=== PATIENT | female | born 1995 | race Caucasian/White ===

== ENCOUNTER 2020-05-28 12:21 | Outpatient (CLI) | payer OTHER, SELFPAY ==
[2020-05-28 12:43] LABS: Hematocrit 39.1 % (37.0-47.0); Hemoglobin 13.1 g/dL (12.0-15.0); Mean Corpuscular HGB Conc 33.5 g/dl (32-36); Mean Corpuscular Hemoglobin 29.4 pg (26-34); Mean Corpuscular Volume 87.7 fl (80-100); Mean Platelet Volume 9.8 fl (7.4-10.4); Platelet Count Result 210 k/mm3 (150-375); Red Blood Count 4.46 M/mm3 (4.2-5.4); White Blood Count 3.9 K/mm3 (4.5-10.0)
[2020-05-28 12:52] LABS: Alanine Aminotransferase 15 U/L (4-35); Albumin Level 4.2 g/dL (3.5-5.1); Alkaline Phosphatase 51 U/L (38-126); Anion Gap 5 mmol/L (8-16); Aspartate Amino Transferase 25 U/L (14-36); Bilirubin,Total 0.4 mg/dL (0.2-1.3); Blood Urea Nitrogen 13 mg/dL (7-17); Calcium 9.2 mg/dL (8.4-10.2); Carbon Dioxide 28 mmol/L (22-30); Chloride 104 mmol/L (98-107); Cholesterol 145 mg/dL (0-200); Estimated Glomerular Filt Rate > 60; Glucose 79 mg/dL (65-105); HDL Direct 71 mg/dL; Potassium 4.3 mmol/L (3.4-5.0); Sodium 137 mmol/L (137-145); Triglycerides 60 mg/dL (<150)
[2020-05-28 13:08] LABS: LDL Cholesterol Direct 62 mg/dL
[2020-05-28 13:52] LABS: Vitamin D 25 Hydroxy 82.7 ng/mL
[2020-05-28 13:57] LABS: Folic Acid 17.6 ng/mL (2.76->20)
== END 2020-05-28 12:22 | disposition home or self-care (01) ==
PROVIDERS: PCP Physician Assistant; Visit Provider Physician Assistant
DX: E55.9 Vitamin D deficiency, unspecified (principal); Z00.00 Encounter for general adult medical examination without abnormal findings; Z51.81 Encounter for therapeutic drug level monitoring; Z79.899 Other long term (current) drug therapy
CPT/HCPCS: 36415; 80053; 80061; 82306; 82607; 82746; 84443; 85027

== ENCOUNTER 2023-06-26 11:40 | Emergency (ER) | payer OTHER, SELFPAY ==
[2023-06-26 11:58] VITALS: BP 132/78; PULSE 127; RESP 18; TEMP 37.8; O2SAT 100
--- NOTE | 2023-06-26 12:38 | ED.URI ---
HPI - URI/Sore Throat General Chief Complaint: Ear Stated Complaint: bilateral ear discomfort,congestion Time Seen by Provider: 06/26/23 12:38 Source: patient, RN notes reviewed and old records reviewed Mode of arrival: ambulatory Limitations: no limitations History of Present Illness HPI Narrative: 28-year-old female presents to the [facility] with bilateral ear discomfort, congestion that started yesterday. Patient reports that she is 38 weeks . Denies any issues with her . Denies any abdominal pain, chest pain, shortness of breath Reports that she called her color maker provider was referred to the [facility] for testing for flu a and COVID. Onset (ago): day(s) (1) Related Data Home Medications Medication Instructions Recorded Confirmed fexofenadine 180 mg tablet 180 mg PO DAILY 05/14/20 06/26/23 (Anne Allergy) prenat.vits,greta,alk-[id number] 1 tablet PO DAILY 05/23/22 06/26/23 Allergies Allergy/AdvReac Type Severity Reaction Status Date / Time erythromycin base Allergy Unknown unknown Verified 06/26/23 18:31 nickel Allergy Unknown unknown Verified 06/26/23 18:31 shellfish derived Allergy Unknown unknown Verified 06/26/23 18:31 tree nut Allergy Unknown unknown Verified 06/26/23 18:31 Review of Systems Review of Systems: All systems reviewed & are unremarkable except as noted in HPI and below Constitutional: Constitutional: Reports no additional constitutional complaints Eyes: Eyes: Reports no additional eye complaints ENT: Reports as per HPI, Reports otalgia and Reports nasal congestion Cardiovascular: Cardiovascular: Reports no additional cardiovascular complaints, Denies chest pain and Denies dyspnea Respiratory: Respiratory: Reports no additional respiratory complaints, Denies chest congestion, Denies cough and Denies dyspnea Gastrointestinal: Gastrointestinal: Reports no additional gastrointestinal complaints, Denies abdominal pain, Denies nausea and Denies vomiting Musculoskeletal: Musculoskeletal: Reports no additional musculoskeletal complaints Integumentary/Breasts: Skin/Breast: Reports system reviewed and no additional complaints, except as docu Neurologic: Reports system reviewed and no additional complaints, except as documented Psychiatric: Psychiatric: Reports no additional psychiatric complaints Allergic/Immunologic: Allergic/Immunologic: Reports no additional allergic/immunologic complaints PMFSH Surgical History Surgical History History of ankle surgery Family History Family History Father Colon cancer Mother No problems noted. Other Malignant neoplasm of prostate Social History Social History Smoking status: Never smoker Alcohol intake: current Substance use: never Lack of Transportation: No Lack of Food: Never True Current Housing: I Have Housing Concerned About Future Housing: No Difficulty Paying Gas/Electric Bills: No Difficulty Paying for Meds: No Currently Unemployed: No Difficulty w/ Childcare or Family Care: No Spiritual care concerns: No Comments At the time of my signature, I reviewed and agree with the nursing past medical, surgical, social, and family history. There is no relevant family history pertinent to the patient complaint. Exam Const: General: cooperative, healthy appearing, comfortable, no acute distress, well developed, alert and well nourished Nutritional Appearance: well nourished Orientation/consciousness: patient oriented x3 Limitations: no limitations HENMT: Head: normal to inspection Ears: hearing grossly normal bilaterally, external ears normal, TM's normal bilaterally, EAC's normal, mastoids normal and no periauricular adenopathy Face/Nose/Sinus: Normal external nose present, Normal nares present, Normal nasal mucous memb
== END 2023-06-26 12:53 | disposition home or self-care (01) ==
PROVIDERS: Emergency Provider Nurse Practitioner; PCP Physician Assistant
DX: O98.513 Other viral diseases complicating pregnancy, third trimester (principal); B33.8 Other specified viral diseases; Z3A.38 38 weeks gestation of pregnancy; J10.1 Influenza due to other identified influenza virus with other respiratory manifestations; Z20.822 Contact with and (suspected) exposure to COVID-19
CPT/HCPCS: 87426; 87804; 99213; G0463

== ENCOUNTER 2023-06-26 18:11 | Emergency (ER) | payer OTHER, SELFPAY ==
[2023-06-26] VITALS (7 sets, daily range): BP systolic 99–154; BP diastolic 56–78; PULSE 104–146; RESP 15–25; TEMP 37.2–37.6; O2SAT 97–100
--- NOTE | ~2023-06-26 | XR_ITS ---
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 RESULT: Lines, tubes, and devices: None. Lungs and pleura: Clear. Cardiomediastinal silhouette: Stable. Other: No acute osseous or upper abdominal finding. IMPRESSION: No acute cardiopulmonary process. Reviewed, dictated and finalized at location K. ET PROOF PRESS OPERATOR
[2023-06-26] MEDS: SODIUM CHLORIDE 0.9% IV 1,000 ML 999 ML IV CONT ×3 (19:24→21:07)
[2023-06-26] MEDS: ACETAMINOPHEN 500 MG TABLET 1000 MG PO (19:36)
[2023-06-26 19:40] LABS: Hematocrit 36.1 % (37.0-47.0); Hemoglobin 11.9 g/dL (12.0-15.0); Mean Corpuscular Hemoglobin 29.3 pg (26-34); Mean Corpuscular Volume 88.9 fl (80-100); Mean Platelet Volume 9.7 fl (7.4-10.4); Platelet Count Result 218 k/mm3 (150-375); Red Blood Count 4.06 M/mm3 (4.2-5.4); Red Cell Distribution Width 13.3 % (11.5-14.5); White Blood Count 8.4 K/mm3 (4.5-10.0)
[2023-06-26 19:45] LABS: Appearance Urine Clear (Clear); Bacteria Urine 2+ /hpf; Bilirubin Urine Negative (Negative); Blood Urine Negative (Negative); Color Urine Yellow (Yellow); Glucose Urine UA Negative (Negative); Ketones Urine Negative (Negative); Leukocyte Esterase Ur Trace LEU/UL (Negative); Nitrate Urine Negative (Negative); Non Pathogenic Casts 0-2; Protein Urine Negative (Negative); RBC Urine 0-2 /hpf (0-2); Specific Grav Ur 1.019 (1.001-1.035); Squamous Epithelial Cell Urine Few /hpf (Few); pH Urine 7.5 (5.0-9.0)
[2023-06-26 19:50] LABS: Alanine Aminotransferase 53 U/L (6-35); Albumin Level 3.4 g/dL (3.5-5.1); Alkaline Phosphatase 164 U/L (38-126); Anion Gap 5 mmol/L (8-16); Aspartate Amino Transferase 71 U/L (14-36); Bilirubin,Total 0.4 mg/dL (0.2-1.3); Blood Urea Nitrogen 9 mg/dL (7-17); Calcium 8.4 mg/dL (8.4-10.2); Carbon Dioxide 20 mmol/L (22-30); Chloride 104 mmol/L (98-107); Estimated CRCL calculation 180 ml/min; Estimated Glomerular Filt Rate > 60; Glucose 88 mg/dL (65-110); Potassium 3.5 mmol/L (3.4-5.0); Sodium 129 mmol/L (137-145)
[2023-06-26 20:06] LABS: Band Neutrophils Percent 1 % (0-6); Lymphocytes Absolute Manual 0.16 K/mm3 (1.1-4.5); Monocytes Absolute Manual 0.67 K/mm3 (0.1-0.90); Monocytes Percent Manual 8 % (3-9); Neutrophils Absolute Manual 7.56 K/mm3 (1.7-7.2); Neutrophils Percent Manual 89 % (46-73); Platelet Estimate Adequate (Adequate); Schistocytes None Seen (NORMAL); Total Cells Counted 100
[2023-06-26 20:13] LABS: Add Urine Microscopic? YES
[2023-06-26 20:16] LABS: Influenza A QL RT-PCR Positive (Negative); Influenza B QL RT-PCR Negative (Negative); RSV RNA, RT-PCR Negative (Negative); SARS-CoV-2 RNA PCR Negative (Negative)
--- NOTE | 2023-06-26 20:31 | ED.FEVER ---
HPI - Fever General Chief Complaint: Fever Stated Complaint: Flu A+, fever, tachycardia, 38 weeks Time Seen by Provider: 06/26/23 18:40 History of Present Illness HPI Narrative: Patient is a 28-year-old female at approximately 38 weeks gestation presenting with fever and tachycardia. States that she has had nasal congestion and chills since yesterday. She woke up this morning and checked her temperature and she had a fever so she went to urgent care where she tested positive for influenza A. She took Tylenol but continued to be febrile so her OB advised that she come in for evaluation. States that she feels like her heart is going a bit faster than normal but denies palpitations or pain. States that she feels a little bit short of breath and continues to have nasal congestion. No abdominal pain, nausea vomiting, leg swelling. No vaginal bleeding or fluid leakage. Related Data Home Medications Medication Instructions Recorded Confirmed fexofenadine 180 mg tablet 180 mg PO DAILY 05/14/20 06/26/23 (Anne Allergy) prenat.vits,greta,hoq-dqqh-iekmg 1 tablet PO DAILY 05/23/22 06/26/23 Allergies Allergy/AdvReac Type Severity Reaction Status Date / Time erythromycin base Allergy Unknown unknown Verified 06/26/23 18:31 nickel Allergy Unknown unknown Verified 06/26/23 18:31 shellfish derived Allergy Unknown unknown Verified 06/26/23 18:31 tree nut Allergy Unknown unknown Verified 06/26/23 18:31 Review of Systems Review of Systems: All systems reviewed & are unremarkable except as noted in HPI and below PMFSH Surgical History Surgical History History of ankle surgery Family History Family History Father Colon cancer Mother No problems noted. Other Malignant neoplasm of prostate Social History Social History Smoking status: Never smoker Alcohol intake: current Substance use: never Lack of Transportation: No Lack of Food: Never True Current Housing: I Have Housing Concerned About Future Housing: No Difficulty Paying Gas/Electric Bills: No Difficulty Paying for Meds: No Currently Unemployed: No Difficulty w/ Childcare or Family Care: No Spiritual care concerns: No Exam Narrative: GENERAL: nontoxic, no acute distress, pleasant cooperative HEAD: Normocephalic, atraumatic. EYES: PERRLA and EOMI. ENT: Mucous membranes moist. NECK: Supple. CHEST: Clear to auscultation. No respiratory distress. HEART: tachycardic, regular rhythm ABDOMEN: Soft, appropriately gravid abdomen without tenderness EXTREMITIES: Normal range of motion. No edema. SKIN: Warm, dry, no rash. NEURO: No focal deficits. Alert and oriented x3. PSYCH: Normal mood and affect. Course Vital Signs Vital signs: Vital Signs Temperature 99.7 F H 06/26/23 18:19 Pulse Rate 146 H 06/26/23 18:19 Respiratory Rate 18 06/26/23 18:19 Blood Pressure 154/78 H 06/26/23 18:19 Pulse Oximetry 100 06/26/23 18:19 Temperature 98.9 F 06/26/23 21:10 Pulse Rate 104 H 06/26/23 22:09 Respiratory Rate 16 06/26/23 22:09 Blood Pressure 104/58 L 06/26/23 22:09 Pulse Oximetry 100 06/26/23 22:09 MDM - Fever MDM Narrative Medical decision making narrative: 88-year-old female presenting with influenza a. Patient is tachycardic on arrival. Exam otherwise remarkable for the above. blood work with mild hyponatremia, suspect related to hypovolemia. Chest x-ray without acute abnormalities. Patient is positive for influenza A. UA with 6-10 wbc's and 2+ bacteria. She denies symptoms but she is so will treat this with Keflex. Patient given 3 liters of fluids and her heart rate has come down. Feel she is safe for outpatient management. Will send in for Keflex and advised Tylenol for fevers and body aches. Patient rodriguez
[2023-06-26] MEDS: CEPHALEXIN 500 MG CAPSULE PO (21:14)
[2023-06-26] MEDS: OSELTAMIVIR PHOSPHATE 75 MG CAPSULE PO (22:04)
== END 2023-06-26 22:09 | disposition home or self-care (01) ==
PROVIDERS: Emergency Provider Emergency Medicine; PCP Physician Assistant
DX: O99.513 Diseases of the respiratory system complicating pregnancy, third trimester (principal); J10.1 Influenza due to other identified influenza virus with other respiratory manifestations; O23.43 Unspecified infection of urinary tract in pregnancy, third trimester; N39.0 Urinary tract infection, site not specified; Z3A.38 38 weeks gestation of pregnancy; Z20.822 Contact with and (suspected) exposure to COVID-19
CPT/HCPCS: 36415; 71045; 80053; 81001; 85025; 87040; 87086; 87426; 87637; 87804; 96360; 96361; 99283; A9270; J7030

== ENCOUNTER 2023-07-06 05:06 | Inpatient (IN) | payer OTHER, SELFPAY ==
[2023-07-06] VITALS (95 sets, daily range): BP systolic 97–161; BP diastolic 40–117; PULSE 60–283; RESP 16–18; TEMP 36.1–37.4; O2SAT 90–100; BMI 38.5
--- NOTE | 2023-07-06 06:01 | LDADM ---
This patient, Martha Schaeffer, was admitted to Labor/Delivery/Recovery 103 on 07/06/23 at 05:06. Plans for labor, pain management and were discussed with patient. Patient/family oriented to hospital policies and general routines including ID bracelet, bed and alarms, visiting hours, pain management, procedures, bathroom and other care routines, personal items, smoking policy, room service/diet and guest tray routines, security routines, and visiting hours. Patient/Family are encouraged to report perceived risks to care and to ask questions if they do not understand what they are told or what they should do. See OBIX for further documentation.
[2023-07-06 06:13] LABS: Basophils Percent Auto 0.3 % (0.2-1.2); Eosinophils Absolute Auto 0.2 K/mm3 (0-0.3); Eosinophils Percent Auto 2.2 % (0-4.4); Hemoglobin 12.8 g/dL (12.0-15.0); Immature Granulocyte Absolute 0.08 K/mm3 (0.00-0.031); Immature Granulocyte Percent A 0.9 % (0-0.5); Lymphocytes Percent Auto 21.4 % (18.3-44.2); Mean Corpuscular HGB Conc 32.8 g/dl (32-36); Mean Corpuscular Hemoglobin 28.9 pg (26-34); Mean Platelet Volume 10.1 fl (7.4-10.4); Monocytes Absolute Auto 0.9 K/mm3 (0.1-0.6); Monocytes Percent Auto 9.2 % (2.6-8.5); Neutrophils Absolute Auto 6.2 K/mm3 (1.3-6.7); Platelet Count Result 293 k/mm3 (150-375); Red Blood Count 4.43 M/mm3 (4.2-5.4); Red Cell Distribution Width 12.8 % (11.5-14.5); White Blood Count 9.3 K/mm3 (4.5-10.0)
[2023-07-06 06:18] LABS: Alanine Aminotransferase 39 U/L (6-35); Albumin Level 3.3 g/dL (3.5-5.1); Alkaline Phosphatase 169 U/L (38-126); Anion Gap 7 mmol/L (8-16); Aspartate Amino Transferase 34 U/L (14-36); Bilirubin,Total 0.6 mg/dL (0.2-1.3); Blood Urea Nitrogen 14 mg/dL (7-17); Calcium 8.9 mg/dL (8.4-10.2); Carbon Dioxide 17 mmol/L (22-30); Chloride 109 mmol/L (98-107); Estimated CRCL calculation 178 ml/min; Estimated Glomerular Filt Rate > 60; Glucose 84 mg/dL (65-110); Potassium 3.8 mmol/L (3.4-5.0); Sodium 133 mmol/L (137-145)
--- NOTE | 2023-07-06 06:23 | PM.IMHP ---
H&P: HPI History of Present Illness Date/Time: 07/06/23 06:23 Chief Complaint: Gestational hypertension term Narrative: 28-year-old 1 para 0 whose last menstrual period was 09/19/2022 EDC is 07/08 4 presents 30 weeks gestation for induction of labor secondary to elevated blood pressures. Her has been uncomplicated prior to that with negative group B strep normal diabetic screen. She has an early ultrasound confirming dates. She denies headaches or blurred vision and is not proteinuric PMFSH Surgical History Surgical History History of ankle surgery Family History Family History Father Colon cancer Mother No problems noted. Other Malignant neoplasm of prostate Social History Social History Smoking status: Never smoker Alcohol intake: current Substance use: never Do You Feel Safe in your Home?: Yes Lack of Transportation: No Lack of Food: Never True Current Housing: I Have Housing Concerned About Future Housing: No Difficulty Paying Gas/Electric Bills: No Difficulty Paying for Meds: No Currently Unemployed: No Education: Bachelor's Degree Difficulty w/ Childcare or Family Care: No Spiritual care concerns: No Meds Home Medications and Allergies Home Medications Medication Instructions Recorded Confirmed Type fexofenadine 180 mg tablet 180 mg PO DAILY 05/14/20 06/26/23 History (Anne Allergy) prenat.vits,greta,nxe-hqwo-julgw 1 tablet PO DAILY 05/23/22 06/26/23 History epinephrine 0.3 mg/0.3 mL 0.3 mg (0.3 mL) IM ONCE #1 ea 05/24/23 06/26/23 Rx injection, auto-injector (EpiPen 2-William) cephalexin 500 mg capsule 500 mg PO Q8H 7 days #21 caps 06/26/23 Rx oseltamivir 75 mg capsule (Tamiflu) 75 mg PO Q12H 5 days #10 caps 06/26/23 Rx Allergies Allergy/AdvReac Type Severity Reaction Status Date / Time erythromycin base Allergy Unknown unknown Verified 06/26/23 18:31 nickel Allergy Unknown unknown Verified 06/26/23 18:31 shellfish derived Allergy Unknown unknown Verified 06/26/23 18:31 tree nut Allergy Unknown unknown Verified 06/26/23 18:31 Vital Signs Vital Signs - 24 hr 07/06/23 05:59 07/06/23 05:57 07/06/23 06:00 Pulse Rate 87 77 Blood Pressure 131/87 134/81 Oxygen Delivery Room Air Exam Const: General: cooperative, healthy appearing and comfortable Nutritional Appearance: average body habitus Orientation/consciousness: oriented to person, oriented to place and oriented to time HENMT: Head: normal to inspection Resp: Effort & Inspection: normal respiratory effort Cardio: Rate: regular rate Rhythm: regular rhythm Heart sounds: S1 normal heart sound present and S2 normal heart sound present GI: Inspection: normal to inspection ( gravis with uterus) : External Female Exam: normal external appearance Speculum Exam - Vagina: normal appearance of the vagina Speculum Exam - Cervix: normal appearance of the cervix ( cervix 3.5/80/2. AROM clear. FHTs reassuring) H&P: Results Labs Labs: BMP 07/06/23 05:24 Sodium 133 L Potassium 3.8 Chloride 109 H Carbon Dioxide 17 L BUN 14 D Creatinine 0.50 L Glucose 84 Calcium 8.9 Liver Function 07/06/23 Range/Units 05:24 Total Bilirubin 0.6 (0.2-1.3) mg/dL AST 34 (14-36) U/L ALT 39 H (6-35) U/L Alkaline Phosphatase 169 H (38-126) U/L Albumin 3.3 L (3.5-5.1) g/dL Assessment and Plan Assessment and plan (1) Term : Code(s): Z34.90 - Encounter for supervision of normal , unspecified, unspecified trimester Status: Acute (2) Gestational hypertension: Code(s): O13.9 - Gestational [-induced] hypertension without significant proteinuria, unspecified trimester Status: Acute Plan medical induction of labor.
[2023-07-06] MEDS: LACTATED RINGERS 1,000 ML 125 ML IV CONT (06:28)
[2023-07-06] MEDS: OXYTOCIN 30 UNITS/NS 500 ML 30 UNITS/500 ML BAG 6 UNITS IV CONT (06:29)
[2023-07-06 06:32] LABS: Uric Acid 4.6 mg/dL (2.5-7.5)
--- NOTE | 2023-07-06 08:39 | WPDANESEPP ---
Anes - Eval Pre Procedure Procedure: Labor Epidural Date/Time: 07/06/23 08:40 Surgeon: Adebayo Currie Preop Diagnosis: Pain during labor Pre Op Diagnosis: IOL Patient Data Age: 28 Gender: F Height: 1.7 m Weight: 111.4 kg Last Vital Signs Temp 36.8 C 07/06/23 08:30 Pulse 74 07/06/23 08:36 BP 141/80 H 07/06/23 08:36 O2 Del Method Room Air 07/06/23 05:59 Allergies Allergy/AdvReac Type Severity Reaction Status Date / Time erythromycin base Allergy Unknown unknown Verified 07/06/23 06:40 nickel Allergy Unknown unknown Verified 07/06/23 06:40 shellfish derived Allergy Unknown unknown Verified 07/06/23 06:39 tree nut Allergy Unknown unknown Verified 07/06/23 06:39 Home Medications Medication Instructions Recorded Confirmed Type fexofenadine 180 mg tablet 180 mg PO DAILY 05/14/20 06/26/23 History (Anne Allergy) prenat.vits,greta,zkp-zzkf-gdqhu 1 tablet PO DAILY 05/23/22 07/06/23 History epinephrine 0.3 mg/0.3 mL 0.3 mg (0.3 mL) IM ONCE #1 ea 05/24/23 06/26/23 Rx injection, auto-injector (EpiPen 2-William) cephalexin 500 mg capsule 500 mg PO Q8H 7 days #21 caps 06/26/23 Rx oseltamivir 75 mg capsule (Tamiflu) 75 mg PO Q12H 5 days #10 caps 06/26/23 Rx Laboratory Tests 07/06/23 05:24 WBC 9.3 K/mm3 (4.5-10.0) RBC 4.43 M/mm3 (4.2-5.4) Hgb 12.8 g/dL (12.0-15.0) Hct 39.0 % (37.0-47.0) MCV 88.0 fl (80-100) MCH 28.9 pg (26-34) MCHC 32.8 g/dl (32-36) RDW 12.8 % (11.5-14.5) Plt Count 293 k/mm3 (150-375) MPV 10.1 fl (7.4-10.4) Immature Gran % (Auto) 0.9 H % (0-0.5) Neut % (Auto) 66.0 % (45.5-73.1) Lymph % (Auto) 21.4 % (18.3-44.2) [place] % (Auto) 9.2 H % (2.6-8.5) Eos % (Auto) 2.2 % (0-4.4) Baso % (Auto) 0.3 % (0.2-1.2) Lymph # (Auto) 2.00 K/mm3 (0.9-3.2) [place] # (Auto) 0.9 H K/mm3 (0.1-0.6) Eos # (Auto) 0.2 K/mm3 (0-0.3) Baso # (Auto) 0.0 K/mm3 (0.0-0.1) Abs Immat Gran (auto) 0.08 H K/mm3 (0.00-0.031) Absolute Neuts (auto) 6.2 K/mm3 (1.3-6.7) Absolute Nucleated RBC 0.0 K/mm3 (0.0-0.012) Nucleated RBC % 0.0 % (0.0-0.2) Sodium 133 L mmol/L (137-145) Potassium 3.8 mmol/L (3.4-5.0) Chloride 109 H mmol/L (98-107) Carbon Dioxide 17 L mmol/L (22-30) Anion Gap 7 L mmol/L (8-16) BUN 14 D mg/dL (7-17) Creatinine 0.50 L mg/dL (0.7-1.0) Estim Creat Clear Calc 178 ml/min Estimated GFR > 60 (59 - ) Glucose 84 mg/dL (65-110) Uric Acid 4.6 mg/dL (2.5-7.5) Calcium 8.9 mg/dL (8.4-10.2) Total Bilirubin 0.6 mg/dL (0.2-1.3) AST 34 U/L (14-36) ALT 39 H U/L (6-35) Alkaline Phosphatase 169 H U/L (38-126) Total Protein 6.0 L g/dL (6.3-8.2) Albumin 3.3 L g/dL (3.5-5.1) RPR Pending Blood Type A Positive Antibody Screen Negative Patient hx anesthesia problems: none Family hx anesthesia problems: none Results Review: All pre-operative results and documents have been reviewed as part of the pre-operative evaluation. [facility] Surgical History Surgical History History of ankle surgery Family History Family History Father Colon cancer Mother No problems noted. Other Malignant neoplasm of prostate Social History Social History Smoking status: Never smoker Alcohol intake: current Substance use: never Do You Feel Safe in your Home?: Yes Lack of Transportation: No Lack of Food: Never True Current Housing: I Have Housing Concerned About Future Housing: No Difficulty Paying Gas/Electric Bills: No Difficulty Paying for Meds: No Currently Unemployed: No Education: Bachelor's Degree Difficulty w/ Childcare or Family Care: No Spiritual care conc
[2023-07-06] MEDS: LACTATED RINGERS 1,000 ML 999 ML IV CONT (09:06)
[2023-07-06 11:12] LABS: Rapid Plasma Reagin Non-Reactive (NonReactive)
--- NOTE | 2023-07-06 11:35 | PM.OBPNLAB ---
Pain Control Date/time seen: 07/06/23 11:35 Pain control: tolerating well and epidural Pelvic Exam Dilation (cm): 10 Effacement (%): 100 station: 0 Amniotic membrane status: Leaking
--- NOTE | 2023-07-06 12:11 | PM.DS ---
DS: Admitting Diagnosis Discharge Date 07/08/23 Admitting Diagnosis gestational hypertension/ term DS: Discharge Diagnosis Discharge Diagnosis (1) Gestational hypertension: Code(s): O13.9 - Gestational [-induced] hypertension without significant proteinuria, unspecified trimester Status: Acute (2) Term : Code(s): Z34.90 - Encounter for supervision of normal , unspecified, unspecified trimester Status: Acute DS: Summary Hospital Course Reason for hospitalization: patient was admitted 07/06/2023 for induction of labor secondary to elevated pressures. Hospital Course: Patient has successful vaginal delivery on 07/06/2023. Her hospital course thereafter was unremarkable. She remained afebrile. She was up, voiding without difficulty, eating regular diet complaints Time Spent with Patient Time attestation: Total time spent providing and/or coordinating discharge services: Exam Const: General: cooperative, healthy appearing and comfortable Orientation/consciousness: oriented to person, oriented to place and oriented to time Resp: Effort & Inspection: normal respiratory effort Cardio: Rate: regular rate Rhythm: regular rhythm Heart sounds: S1 normal heart sound present and S2 normal heart sound present GI: Inspection: normal to inspection ( fundus firm below umbilicus) DS: Data Data Completed and Pending Labs on day of discharge: Labs from last 24 hours 07/06/23 05:24 WBC 9.3 RBC 4.43 Hgb 12.8 Hct 39.0 MCV 88.0 MCH 28.9 MCHC 32.8 RDW 12.8 Plt Count 293 MPV 10.1 Immature Gran % (Auto) 0.9 H Neut % (Auto) 66.0 Lymph % (Auto) 21.4 [place] % (Auto) 9.2 H Eos % (Auto) 2.2 Baso % (Auto) 0.3 Lymph # (Auto) 2.00 [place] # (Auto) 0.9 H Eos # (Auto) 0.2 Baso # (Auto) 0.0 Abs Immat Gran (auto) 0.08 H Absolute Neuts (auto) 6.2 Absolute Nucleated RBC 0.0 Nucleated RBC % 0.0 Sodium 133 L Potassium 3.8 Chloride 109 H Carbon Dioxide 17 L Anion Gap 7 L BUN 14 D Creatinine 0.50 L Estim Creat Clear Calc 178 Estimated GFR > 60 Glucose 84 Uric Acid 4.6 Calcium 8.9 Total Bilirubin 0.6 AST 34 ALT 39 H Alkaline Phosphatase 169 H Total Protein 6.0 L Albumin 3.3 L RPR Non-reactive Blood Type A Positive Antibody Screen Negative Discharge Plan Discharge Attending physician on discharge: Jos Ma Discharging Clinician: Jos Ma Patient Disposition: Home, Self-Care Activity: may shower and pelvic rest Diet: heart healthy Wound Care Instructions: follow printed instructions Discharge Instructions: Education: Mom and Baby Guide Given to: Mother Follow-Up: Call your delivering provider's office for an appointment to be seen in: 1 Week Mom and baby should come to the [facility] for the follow-up appointment. Appointment Date/Time: July 10, 2023 at 9:00 am What to expect at your follow-up visit: Blood Pressure Check Physical Assessment Call [phone] if you are unable to keep your appointment time. BREAST CARE: * Wear a snug supportive bra. * For engorgement discomfort: Breast Feeding: * Apply warm moist washcloths * Express milk as needed to relieve engorgement * Wear loose clothing Bottle Feeding: * May apply ice packs * For sore nipples: * Identify correct latch-on * Apply warm moist washcloths before and after nursing * Air dry nipples after nursing * May apply Lansinoh cream to nipples /PERINEAL CARE: * Until bleeding stops, use your jose bottle after urinating * Change your pad frequently throughout the day * You may take sitz baths several times a day (fill your bathtub with warm water and soak for 20 minutes.) Do NOT bathe in the water * No tub baths until seen by your physician - You may shower ACTIVITY: * Rest as much as possible. *
--- NOTE | 2023-07-06 12:13 | P.PCNOB_ITS ---
OB - Vaginal Delivery Note Procedure Delivery date: 07/06/23 Events: Gestational Hypertension Delivery monitor: External FHT and External Uterine Route of delivery: Episiotomy description: None Laceration Description: Perineal - 1st Degree Delivery repair: vicryl Specimen: No Quantitative Blood Loss (ml): 61 Anesthesia type: Epidural Disposition: Floor Complications: No immediate complications [place] Baby Date of : 07/06/23 Time of : 11:59 Weeks of gestation at delivery: 39 Infant gender: Male presentation: vertex position: Right Occiput Anterior Placenta delivery description: Spontaneous Cord Vessel Description: 3 Vessels, Nuchal Cord and Loose score one minute: 8 score five minutes: 9
[2023-07-06] MEDS: OXYTOCIN 30 UNITS/NS 500 ML 30 UNITS/500 ML BAG 125 UNITS IV CONT (12:23)
[2023-07-06] MEDS: IBUPROFEN 600 MG TABLET PO (14:22)
[2023-07-06] MEDS: BENZOCAINE 20% AER SPR (*SP) 56 GM CAN 1 SPRAY TOPICAL (14:23)
[2023-07-06] MEDS: WITCH HAZEL 40 PADS 1 PAD TOPICAL (14:23)
--- NOTE | 2023-07-06 14:57 | PC.NURSE ---
Patient transferred to post room #290 via wheelchair. Support person present. Oriented to unit, room, information board, rooming in, admission packet and security measures. Patient verbalizes understanding.
--- NOTE | 2023-07-06 15:46 | PC.NURSE ---
[id number] Introductions made and Mother is demonstrating her ability to independently latch with appropriate positioning and alignment. She denies any nipple discomfort and is responsively . Education given to the mother of how to visualize the suckling (with good rocking jaw motion), swallows (dropping of the lower jaw) and is demonstrating well. is able to maintain latch without pain to mother protecting the nipple with optimal positioning and latching. Parents voiced understanding of skin to skin, responsive feedings, encourage if it has been 2 -2.5 hours since the start of the last , to call if infant does not latch, or if there is discomfort with . Parents attended the class here at [place]. Resources used for education were facilitated with the tool/mom and baby guide/feeding sheet. Inpatient/outpatient resources provided with name written on the communication board, and the mom/baby guide. Parents voiced understanding of information, demonstrated learning and will call if there is a request for assistance. Reported to the Primary RN.
[2023-07-07 00:10] VITALS: BP 125/71; PULSE 82; RESP 16; TEMP 36.6; O2SAT 100
[2023-07-07 04:00] VITALS: BP 105/60; PULSE 69; RESP 16; TEMP 36.4; O2SAT 100; O2SAT 99
[2023-07-07 05:22] LABS: Hematocrit 35.6 % (37.0-47.0); Hemoglobin 11.7 g/dL (12.0-15.0)
--- NOTE | 2023-07-07 05:57 | PM.OBPNVD ---
OB - PN: Subj Subjective Date/time seen: 07/07/23 05:57 Patient comments: no complaints and pain well controlled baby status: doing well OB - PN: Obj Data Labs 07/07/23 04:01 07/06/23 05:24 Labs: Laboratory Results - last 24 hr 07/06/23 07/07/23 05:24 04:01 WBC 9.3 RBC 4.43 Hgb 12.8 11.7 L Hct 39.0 35.6 L MCV 88.0 MCH 28.9 MCHC 32.8 RDW 12.8 Plt Count 293 MPV 10.1 Immature Gran % (Auto) 0.9 H Neut % (Auto) 66.0 Lymph % (Auto) 21.4 [place] % (Auto) 9.2 H Eos % (Auto) 2.2 Baso % (Auto) 0.3 Lymph # (Auto) 2.00 [place] # (Auto) 0.9 H Eos # (Auto) 0.2 Baso # (Auto) 0.0 Abs Immat Gran (auto) 0.08 H Absolute Neuts (auto) 6.2 Absolute Nucleated RBC 0.0 Nucleated RBC % 0.0 Sodium 133 L Potassium 3.8 Chloride 109 H Carbon Dioxide 17 L Anion Gap 7 L BUN 14 D Creatinine 0.50 L Estim Creat Clear Calc 178 Estimated GFR > 60 Glucose 84 Uric Acid 4.6 Calcium 8.9 Total Bilirubin 0.6 AST 34 ALT 39 H Alkaline Phosphatase 169 H Total Protein 6.0 L Albumin 3.3 L RPR Non-reactive Blood Type A Positive Antibody Screen Negative OB - PN A/P Plan day: 1 Plan: routine care Time Spent With Patient Time: Total time spent is greater than 50% in coordination of care (as documented) at patient's floor/unit and/or counseling patient: Time with patient: less than 15 minutes Exam Const: General: cooperative, healthy appearing and comfortable Nutritional Appearance: average body habitus Orientation/consciousness: oriented to person, oriented to place and oriented to time Resp: Effort & Inspection: normal respiratory effort Cardio: Rate: regular rate Rhythm: regular rhythm Heart sounds: S1 normal heart sound present and S2 normal heart sound present GI: Inspection: normal to inspection
[2023-07-07 07:30] VITALS: BP 128/74; PULSE 68; RESP 18; TEMP 37.1; O2SAT 100
--- NOTE | 2023-07-07 07:40 | WPDANLDPN2 ---
Anes-Prog Note L&D Date/Time: 07/07/23 07:40 Neuro status: Neuro function grossly intact. Vital Signs: Last Vital Signs Temp 36.4 C 07/07/23 04:00 Pulse 69 07/07/23 04:00 Resp 16 07/07/23 04:00 BP 105/60 07/07/23 04:00 Pulse Ox 100 07/07/23 04:00 O2 Del Method Room Air 07/07/23 04:00 Pain score (VAS): 0 I/O: Intake & Output 07/06/23 07/06/23 07/07/23 15:59 23:59 07:59 Intake Total 2200 500 Output Total 1361 1700 Balance 839 -1200 Patient feedback: Patient satisfied with anesthetic care.
[2023-07-07] MEDS: IBUPROFEN 600 MG TABLET PO (10:30)
[2023-07-07] MEDS: MULTIVIT/MIN/PREN/FOL AC/IRON TABLET 1 TAB PO (10:30)
[2023-07-07] MEDS: DOCUSATE SODIUM 100 MG CAPSULE PO ×2 (10:30→18:01)
[2023-07-07 11:48] VITALS: BP 120/73; PULSE 82; RESP 16; TEMP 37; O2SAT 99
--- NOTE | 2023-07-07 13:57 | PC.NURSE ---
[id number] Purposefully rounded to assess for needs. Mother verbalizes she is able to independently latch with appropriately with good rocking jaw motion and she has cramping during . She denies any nipple discomfort and is responsively . The parents work well together as a team to care for their infant. Infant is currently meeting outcomes for weight, output, jaundice, blood sugar and feeding frequencies appropriate for building a good milk supply. Encouraged mother to watch for long periods of time without . Mother states the infant was in the nursery for assessment, then a circumcision. Encouraged parents to be assertive with waking up to breastfeed often, make efforts to attempt at 2-2.5 hours from the start of the last feeding, with working toward not going past 3 hours today. Mother is confident and declines any additional assistance or education at this time. Mother is encouraged to call for RN if her infant doesn?t latch, pain with latching, difficulty waking infant, questions or concerns. Mother voiced understanding of information shared along with the feeding sheet, mom/baby guide, and RN LC name remains on the communication board for an additional resource.
[2023-07-07] MEDS: ACETAMINOPHEN 325 MG TABLET 650 MG PO (18:01)
[2023-07-07] MEDS: WITCH HAZEL 40 PADS 1 PAD TOPICAL (18:02)
[2023-07-07 21:20] VITALS: BP 120/74; PULSE 82; RESP 16; TEMP 36.7; O2SAT 100
[2023-07-08 01:02] VITALS: BP 113/73; PULSE 67
[2023-07-08 07:53] VITALS: BP 126/69; PULSE 75; RESP 16; TEMP 36.7; O2SAT 99
[2023-07-08] MEDS: WITCH HAZEL 40 PADS 1 PAD TOPICAL (08:13)
[2023-07-08] MEDS: DOCUSATE SODIUM 100 MG CAPSULE PO (08:14)
[2023-07-08] MEDS: IBUPROFEN 600 MG TABLET PO (08:14)
[2023-07-08] MEDS: MULTIVIT/MIN/PREN/FOL AC/IRON TABLET 1 TAB PO (08:14)
--- NOTE | 2023-07-08 10:13 | PM.OBPNVD ---
OB - PN: Subj Subjective Date/time seen: 07/08/23 10:13 Patient comments: no complaints and pain well controlled baby status: doing well OB - PN: Obj Data Labs 07/07/23 04:01 07/06/23 05:24 OB - PN A/P Plan day: 2 Plan: routine care, discharge home and follow up 6 weeks Comments: BP's good Time Spent With Patient Time: Total time spent is greater than 50% in coordination of care (as documented) at patient's floor/unit and/or counseling patient: Exam : Bimanual exam- vagina & uterus: other (Uterus firm, nt @U)
[2023-07-10 09:31] VITALS: BP 120/76; PULSE 83; RESP 18; TEMP 36.6; O2SAT 99
== END 2023-07-08 13:36 | disposition home or self-care (01) | DRG 807 ==
LOC: ANHLDR 12:13 → ANHOB2 07-08 12:01 → ANHLDR 07-10 12:14 → ANHOB2 07-10 12:14
PROVIDERS: Admitting Provider Obstetrics & Gynecology; PCP Physician Assistant; Visit Provider Obstetrics & Gynecology Gynecology
DX: O13.4 Gestational [pregnancy-induced] hypertension without significant proteinuria, complicating childbirth (principal); Z37.0 Single live birth; Z3A.39 39 weeks gestation of pregnancy; O69.81X0 Labor and delivery complicated by cord around neck, without compression, not applicable or unspecified; O70.0 First degree perineal laceration during delivery
CPT/HCPCS: 36415; 80053; 84550; 85014; 85018; 85025; 86592; 86850; 86900; 86901; A9270; J2590; J2795; J7120

== ENCOUNTER 2024-06-14 08:47 | Outpatient (CLI) | payer OTHER, SELFPAY ==
--- OUTSIDE RECORDS SUMMARY | 2024-06-14 08:49 | XMS_ITS | Clinical Summary ---
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 Surgical History Surgery Date Site/Laterality Comments LEG SURGERY Left tibia and fibula Family History Medical History Relation Name Comments Cancer Father Relation Name Status Comments Father Alive Mother Alive Social History Tobacco Use Types Packs/Day Years Used Date Smoking Tobacco: Never Personal Safety Answer Date Recorded Getting School Help Needed Not on file 05/12 Comments No Sex and Gender Information Value Date Recorded Sex Assigned at Not on file 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 Gender Identity Female 08/02/2023 11:37 AM CDT Sexual Orientation Straight 08/02/2023 11 :38 AM CDT Obstetrics History Last Filed Vital Signs Vital Sign Reading Time Taken Comments Blood Pressure 126/76 11/17/2021 10:44 AM CDT Pulse 86 11/17/2021 10:44 AM CDT Temperature 36.9 C (98.5 F) 11/17/2021 10:44 AM CDT Respiratory Rate - - Oxygen Saturation 100% 11/17/2021 10:44 AM CDT Inhaled Oxygen Concentration - - Weight 79.4 kg (175 lb) 11/17/2021 10:44 AM CDT Height 170.2 cm (5' 7 ) 11/17/2021 10:44 AM CDT Body Mass Index 27.41 11/17/2021 10:44 AM CDT Plan of Treatment Health Maintenance Due Date Last Done Comments Cervical Cancer Screening 1994 Depression Screening 1994 Hepatitis C Screening 1994 Regular Well Visit/Exam 18-64 02/03/2012 DTaP/Tdap/Td Vaccine (7 - Td or Tdap) 08/21/2017 08/22/2007, 12/09/1999, 08/25/1995, Additional history exists Covid-19 Vaccine ( season) 2023 02/12/2021, 05/26/2020, 05/05/2020 Influenza Vaccine (#1) 2023 6, 02/06/2015, 02/13/2014, Additional history exists HPV Vaccines Completed 03/04/2008, 09/30, 08/22/2007 Varicella Vaccines Completed 03/04/2008, 05/16/2001 Pneumococcal vaccine <65 Aged Out No longer eligible based on patient's age to complete this topic Insurance [facility] H[facility]/PP[facility] Address: [facility] [address] [place] [address] Care Teams Yoke Presser Relationship Specialty Start Date End Date Ranjan Flores MD [address] [facility] [address] [place], [place] [id number] PCP - General Internal Medicine 09/23/21
--- OUTSIDE RECORDS SUMMARY | 2024-06-14 08:50 | XMS_ITS | Referral Summary ---
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 Social History Tobacco Use Types Packs/Day Years Used Date Smoking Tobacco: Never Personal Safety Answer Date Recorded Getting School Help Needed Not on file 05/12 Comments No Sex and Gender Information Value Date Recorded Sex Assigned at Not on file 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
[2024-06-14 09:44] LABS: Basophils Percent Auto 0.7 % (0.2-1.2); Eosinophils Absolute Auto 0.1 K/mm3 (0-0.3); Eosinophils Percent Auto 3.2 % (0-4.4); Hematocrit 36.9 % (37.0-47.0); Immature Granulocyte Absolute 0.01 K/mm3 (0.00-0.031); Immature Granulocyte Percent A 0.2 % (0-0.5); Lymphocytes Absolute Auto 1.59 K/mm3 (0.9-3.2); Lymphocytes Percent Auto 39.4 % (18.3-44.2); Mean Corpuscular HGB Conc 32.5 g/dl (32-36); Mean Corpuscular Hemoglobin 29.3 pg (26-34); Monocytes Absolute Auto 0.4 K/mm3 (0.1-0.6); Monocytes Percent Auto 8.9 % (2.6-8.5); Neutrophils Absolute Auto 1.9 K/mm3 (1.3-6.7); Neutrophils Percent Auto 47.6 % (45.5-73.1); Platelet Count Result 213 k/mm3 (150-375); Red Cell Distribution Width 12.3 % (11.5-14.5)
[2024-06-14 09:57] LABS: Alanine Aminotransferase 16 U/L (6-35); Albumin Level 4.5 g/dL (3.5-5.1); Alkaline Phosphatase 76 U/L (38-126); Anion Gap 9 mmol/L (4-12); Aspartate Amino Transferase 25 U/L (14-36); Bilirubin,Total 0.9 mg/dL (0.2-1.3); Blood Urea Nitrogen 16 mg/dL (7-17); Calcium 9.1 mg/dL (8.4-10.2); Carbon Dioxide 27 mmol/L (22-30); Chloride 104 mmol/L (98-107); Cholesterol 132 mg/dL (0-200); Estimated Glomerular Filt Rate > 60; Glucose 76 mg/dL (65-110); HDL Direct 70 mg/dL; Potassium 4.3 mmol/L (3.4-5.0); Sodium 140 mmol/L (137-145); Triglycerides 32 mg/dL (<150)
[2024-06-14 10:09] LABS: LDL Cholesterol Direct 45 mg/dL
[2024-06-14 10:51] LABS: Vitamin D 25 Hydroxy 36.2 ng/mL
== END 2024-06-14 08:48 | disposition home or self-care (01) ==
LOC: ANHLAB 08:47
PROVIDERS: PCP Internal Medicine; Visit Provider Internal Medicine
DX: Z00.00 Encounter for general adult medical examination without abnormal findings (principal); D64.9 Anemia, unspecified; E55.9 Vitamin D deficiency, unspecified
CPT/HCPCS: 36415; 80053; 80061; 82306; 85025